=== PATIENT | female | born 2000 | race Caucasian/White ===

== ENCOUNTER 2024-10-29 03:57 | Emergency (ER) | payer OTHER, SELFPAY ==
[2024-10-29 03:59] VITALS: BP 120/70
--- NOTE | 2024-10-29 04:29 | ED.GENMED ---
History of Present Illness
General
Chief Complaint: Eye Problems
Source: patient and family
Exam Limitations: none
Time Seen by Provider: 10/29/24 04:07
Nursing documentation reviewed up to this point in time: agreed with
History of Present Illness
History of Present Illness:
24-year-old female presents to the emergency department with bilateral eye pain. She states that she was woodworking today and there was a jeffrey environment. She was wearing contacts. She took contacts out who went to bed. She awakened several
hours later with severe bilateral eye pain. Denies any bleeding or exudate. She is not wearing her contacts. Last tetanus
Past History
Past History
ED Past Medical History: Other (Concussion)
ED Past Surgical History: Cholecystectomy and Other ([place] teeth)
Social History
Tobacco: Non-smoker
Personal: Single
Living: with family
Review of Systems
Review of Systems
Allergies reviewed?: Yes
Other source history: family
All Other Systems: ROS reviewed and negative except as documented in HPI and ROS
Constitutional: Denies fever
EENT: Reports no symptoms
Respiratory: Reports no symptoms
Cardiac: Reports no symptoms
ABD/GI: Reports no symptoms
: Reports no symptoms
Musculoskeletal: Reports no symptoms
Skin: Reports no symptoms
Neurological: Reports no symptoms
Endocrine: Reports no symptoms
Hematologic/Lymphatic: Reports no symptoms
Psychiatric: Reports no symptoms
Phy Exam
General Physical Exam
General Presentation: well appearing and mild distress
General age: appears stated age
General Skin: warm and dry
General Habitus: normal
General Mental: alert
General Hydration: appears well hydrated
Eye Exam
Eye Exam: PERRL and EOMI
Eye Exam General: PERRL: bilateral and EOM intact: bilateral
Pupil Exam: Bilateral: round and reactive
Conjunctival Changes: bilateral: local crusting
Cornea Exam: abrasion: Bilateral
Neurological Exam
Neurological Exam: alert and oriented x3
Musculoskeletal Exam
Musculoskeletal Exam: full ROM
Skin Exam
Skin Exam: normal color and warm/dry
Psychiatric Exam
Psychiatric Exam: normal mood/affect
Course
Orders/Labs/Results
Orders:
Orders
10/29/24 04:28
Tetanus/Diphth/Acelpertussis [Adacel] 0.5 ml IM .ONCE ONE
10/29/24 04:35
Ciprofloxacin HCl [Ciloxan 0.3% Ophthalmic Solution] See Dose Instructions BOTH EYES NOW STA
10/29/24 05:21
Tetracaine HCl [Tetracaine 0.5% Ophthalmic Solution] 1 drop .ROUTE .STK-MED ONE
10/29/24 05:25
Fluorescein Sodium [Ful-Iman] 2 mg .ROUTE .STK-MED ONE
Vital Signs
Initial and Last Documented VS:
Initial Vital Signs
Temp Pulse Resp BP Pulse Ox
97.8 F 74 20 120/70 100
10/29/24 03:59 10/29/24 03:59 10/29/24 03:59 10/29/24 03:59 10/29/24 03:59
Last Documented Vital Signs
Temp Pulse Resp BP Pulse Ox
97.8 F 74 20 120/70 100
10/29/24 03:59 10/29/24 03:59 10/29/24 03:59 10/29/24 03:59 10/29/24 03:59
*Critical Care Note
Total Time (30-74mins, 75-104mins- exclusive of procedures): Not Applicable
Update Note
Update Note:
Patient does have an abrasive worker. She can get him tomorrow.
ED Attending Note
-
Portions of this chart may have been created with voice recognition software.� Occasional wrong word or��sound alike� substitutions may have occurred due to the inherent limitations of voice recognition software.
Discharge Plan
Departure
Patient Disposition: Home (Routine Discharge)
Date of Disposition: 10/29/24
Time of Disposition: 04:44
Patient with high blood pressure during this ER visit?: No
Discharge Problem:
Bilateral corneal abrasions
Instructions: Corneal Abrasion (DC)
Prescriptions:
No Action
No Current Medications
0
Activity Restrictions/Additional Instructions:
As discussed, please follow-up with your abrasive worker as previously directed.
Interventions
Interventions:
*Risk Screen - Suicide Last Done: 10/29/24 03:59
*General Assessment Last Done: 10/29/24 05:00
*Neglect/Abuse Screening Last Done: 10/29/24 03:59
*ED- Fall Risk Assessment Last Done: 10/29/24 05:00
*ED COVID-19 Vaccine History Last Done: 10/29/24 05:00
*Nursing Disposition Last Done: 10/29/24 05:00
Discharge Date and Time
Discharge Date/Time: 10/29/24 05:00
Print Language: [place]
[2024-10-29] MEDS: ADACEL 0.5 ML IM (04:38)
[2024-10-29] MEDS: CILOXAN 0.3% OPHTHALMIC SOLUTION 1 DROP BOTH EYES (05:03)
== END 2024-10-29 05:00 | disposition home or self-care (01) ==
LOC: EMR 03:57
PROVIDERS: EMERGENCY PHYSICIAN Student in an Organized Health Care Education/Training Program
DX: S05.01XA Injury of conjunctiva and corneal abrasion without foreign body, right eye, initial encounter (principal); S05.02XA Injury of conjunctiva and corneal abrasion without foreign body, left eye, initial encounter; W20.8XXA Other cause of strike by thrown, projected or falling object, initial encounter; Z23 Encounter for immunization
CPT/HCPCS: 99283; 90471; 90715